=== PATIENT | male | born 1955 | race Caucasian/White ===

== ENCOUNTER → 2021-04-27 10:40 | Outpatient (CLI) | payer OTHER, MEDICAID, SELFPAY | PROVIDERS: PCP Family Medicine; Visit Provider Ophthalmology | DX: Z01.812 Encounter for preprocedural laboratory examination (principal); U07.1 COVID-19 | CPT/HCPCS: C9803; U0003; U0005 ==

== ENCOUNTER 2021-05-28 10:06 | Day surgery (SDC) | payer OTHER, MEDICAID, SELFPAY ==
[2021-05-22 11:14] VITALS: BMI 41.8
[2021-05-28 10:59] VITALS: BP 135/89; PULSE 69; RESP 18; TEMP 36.7; O2SAT 96
[2021-05-28 12:15] VITALS: BP 129/84; PULSE 61; RESP 18; O2SAT 99
[2021-05-28 12:20] VITALS: BP 152/98; PULSE 56; RESP 18; O2SAT 99
[2021-05-28 12:25] VITALS: BP 155/99; PULSE 57; RESP 18; O2SAT 99
[2021-05-28 12:30] VITALS: BP 153/100; PULSE 63; RESP 18; O2SAT 99
[2021-05-28 12:31] VITALS: BP 144/80; PULSE 64; RESP 16; TEMP 36.6; O2SAT 94
[2021-12-05 10:58] LABS: POC Glucose,Bedside 128 (70-110)
== END 2021-05-28 12:45 | disposition home or self-care (01) ==
PROVIDERS: PCP Family Medicine; Visit Provider Ophthalmology
PROC: (CPT 66984; principal; 2021-05-28 13:00)
DX: H25.813 Combined forms of age-related cataract, bilateral (principal); E11.9 Type 2 diabetes mellitus without complications; Z83.3 Family history of diabetes mellitus; Z82.49 Family history of ischemic heart disease and other diseases of the circulatory system; Z79.84 Long term (current) use of oral hypoglycemic drugs; Z79.899 Other long term (current) drug therapy
CPT/HCPCS: 66984; 82962; V2632

== ENCOUNTER 2021-06-18 09:34 | Day surgery (SDC) | payer OTHER, MEDICAID, SELFPAY ==
[2021-06-13 14:02] VITALS: BMI 37.5
[2021-06-18 11:11] VITALS: BP 129/76; PULSE 63; RESP 18; TEMP 36.3; O2SAT 97
[2021-06-18 12:26] VITALS: BP 137/85; PULSE 59; RESP 18; TEMP 36.3; O2SAT 95
[2021-06-18 12:35] VITALS: BP 137/85; PULSE 59; RESP 18; O2SAT 95
[2021-12-05 10:59] LABS: POC Glucose,Bedside 126 (70-110)
== END 2021-06-18 12:35 | disposition home or self-care (01) ==
LOC: OR 09:35
PROVIDERS: PCP Family Medicine; Visit Provider Ophthalmology
PROC: (CPT 66984; principal; 2021-06-18 13:00)
DX: H25.813 Combined forms of age-related cataract, bilateral (principal); E11.9 Type 2 diabetes mellitus without complications; Z83.3 Family history of diabetes mellitus; Z82.49 Family history of ischemic heart disease and other diseases of the circulatory system; Z79.84 Long term (current) use of oral hypoglycemic drugs; Z79.899 Other long term (current) drug therapy
CPT/HCPCS: 66984; 82962; V2632

== ENCOUNTER → 2022-01-08 15:00 | Outpatient (CLI) | payer OTHER, MEDICAID, SELFPAY ==
[2022-01-08 19:20] LABS: Basophils # 0.1 K/mm3 (0-0.2); Basophils % 0.8 % (0.1-2.0); Eosinophils # 0.1 K/mm3 (0.0-0.4); Eosinophils % 1.6 % (0.1-12.0); Hematocrit 48.9 % (42.0-52.0); Hemoglobin 16.5 g/dL (14.1-18.0); Lymphocytes # 1.4 K/mm3 (0.7-4.5); Lymphocytes % 19.9 % (10-50); Mean Corpuscular HGB Conc 33.8 g/dL (31.8-35.4); Mean Corpuscular Hemoglobin 29.8 pg (27.0-31.2); Mean Corpuscular Volume 88.2 fl (80-94); Mean Platelet Volume 9.3 fl (7.4-10.4); Monocytes # 0.3 K/mm3 (0.1-1.0); Monocytes % 4.5 % (1.7-9.3); Neutrophils # 5.2 K/mm3 (1.8-7.8); Neutrophils % 73.2 % (37.0-80.0); Platelet Count 242 K/mm3 (142-424); Red Blood Count 5.54 M/mm3 (4.60-6.20); Red Cell Distribution Width 14.1 % (11.5-17.5); White Blood Count 7.1 K/mm3 (4.8-10.8)
[2022-01-08 19:38] LABS: Alanine Aminotransferase 15 U/L (12-78); Albumin Level 4.7 g/dl (3.5-5.0); Albumin/Globulin Ratio 1.9 (1.1-1.8); Alkaline Phosphatase 105 U/L (38-126); Anion Gap 16.7 mEq/L (5-15); Aspartate Amino Transferase 23 U/L (17-59); Bilirubin,Total 0.9 mg/dl (0.2-1.3); Blood Urea Nitrogen 14 mg/dl (9-20); Carbon Dioxide 28 mmol/L (22.0-30.0); Chloride 96 mmol/L (98-107); Estimated Glomerular Filt Rate 135 ml/min (>60); GFR (African American) 164 ML/MIN (>60); Globulin 2.5 g/dL (1.3-3.2); Glucose 115 mg/dl (74-100); Potassium 4.7 mmoL/L (3.5-5.1); Sodium 136 mmol/L (136-145); Total Protein,Serum 7.2 g/dl (6.3-8.2)
[2022-01-08 19:45] LABS: Creatinine,Urine Random 26 mg/dL (Not Estab.)
[2022-01-08 19:50] LABS: Microalbumin < 6.000 mg/L (0-16.7)
[2022-01-22 16:35] LABS: 1,25 Dihydroxy Vitamin D 42 pg/mL (.); 1,25-Dihydroxy, Vitamin D-2 <10 pg/mL (.); 1,25-Dihydroxy, Vitamin D-3 42 pg/mL (.)
== END ==
PROVIDERS: PCP Family Medicine; Visit Provider Family Medicine
DX: E11.9 Type 2 diabetes mellitus without complications (principal); E55.9 Vitamin D deficiency, unspecified; I10 Essential (primary) hypertension; Z79.84 Long term (current) use of oral hypoglycemic drugs
CPT/HCPCS: 80053; 82043; 82570; 82652; 84443; 85025